=== PATIENT | male | born 1975 | race Caucasian/White ===

== ENCOUNTER 2020-06-13 02:41 | Emergency (ER) | payer OTHER ==
[~2020-06-13] VITALS: Ht 177.8 cm; Wt 173.9 kg
[2020-06-13] MEDS ORDERED: GLIM4TAB5 PO (02:56)
[2020-06-13] MEDS ORDERED: LOSA50TA5 PO (02:56)
[2020-06-13] MEDS ORDERED: KETOROLAC 30 MG/ML 1ML VIAL IV ONE (03:45)
[2020-06-13] MEDS ORDERED: NS 1,000 ML IV ONE ×2 (03:45→05:45)
[2020-06-13 04:10] LABS: BASO % 0.2 % (0.0-1.0); EOS # 0.1 10^3/uL (0.0-0.5); EOS % 1.4 % (0.0-3.0); HEMATOCRIT 43.2 % (42.0-52.0); HEMOGLOBIN 14.3 g/dl (13.5-17.5); LYMPH # 1.9 10^3/uL (1.5-5.0); LYMPH % 19.4 % (24.0-44.0); MEAN CORPUSCULAR HEMOGLOBIN 28.1 pg (27.0-33.0); MEAN CORPUSCULAR HGB CONC 33.1 g/dl (32.0-36.5); MEAN CORPUSCULAR VOLUME 84.9 fl (80.0-96.0); MONO # 0.9 10^3/uL (0.0-0.8); MONO % 9.2 % (0.0-5.0); NEUTROPHILS % 69.6 % (36.0-66.0); PLATELET COUNT, AUTOMATED 255 10^3/uL (150-450); RED BLOOD COUNT 5.09 10^6/uL (4.30-6.10)
--- NOTE | 2020-06-13 04:13 | REPVR ---
PROCEDURE INFORMATION: Exam: XR Left Shoulder Exam date and time: 06/13/2020 3:54 AM Age: 44 years old Clinical indication: Other: Pain, limited rom; Additional info: Pain, limited rom TECHNIQUE: Imaging protocol: XR Left shoulder. Views: 2 or more views. COMPARISON: No relevant prior studies available. FINDINGS: Bones/joints: Normal. Soft tissues: Normal. IMPRESSION: No acute findings. Electronically signed by: Margarito Bowling On 06/13/2020 04:13:02 AM
--- NOTE | 2020-06-13 04:14 | REPVR ---
PROCEDURE INFORMATION: Exam: XR Chest, 2 Views Exam date and time: 06/13/2020 3:54 AM Age: 44 years old Clinical indication: Other: Chest pain TECHNIQUE: Imaging protocol: XR of the chest Views: 2 views. COMPARISON: No relevant prior studies available. FINDINGS: Lungs: Mild nonspecific bilateral perihilar reticulonodular opacities. Pleural space: Unremarkable. No pleural effusion. No pneumothorax. Heart/Mediastinum: Unremarkable. No cardiomegaly. 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 IMPRESSION: Mild nonspecific bilateral perihilar reticulonodular opacities. Electronically signed by: Margarito Bowling On 06/13/2020 04:13:46 AM
--- NOTE | 2020-06-13 04:43 | REPVR ---
PROCEDURE INFORMATION: Exam: US Duplex Left Upper Extremity Veins, Limited Exam date and time: 06/13/2020 4:32 AM Age: 44 years old Clinical indication: Pain; Arm, upper; Left; Additional info: Left arm pain TECHNIQUE: Imaging protocol: Real-time Duplex ultrasound of the Left Upper Extremity with 2-D david scale, color Doppler flow and spectral waveform analysis with image documentation. Limited exam focused on the left upper extremity veins. COMPARISON: No relevant prior studies available. FINDINGS: Left deep veins: Unremarkable. Axillary and brachial veins are patent throughout without thrombus. Normal Doppler waveforms. Normal compressibility and/or augmentation response. Visualized internal jugular and subclavian veins are patent. Left superficial veins: Unremarkable. Visualized cephalic and basilic veins are patent without thrombus. Soft tissues: Unremarkable. IMPRESSION: No evidence of deep vein thrombosis. Electronically signed by: Margarito Bowling On 06/13/2020 04:43:05 AM
[2020-06-13 04:59] LABS: BLOOD UREA NITROGEN 20 MG/DL (7-18); CALCIUM LEVEL 8.6 MG/DL (8.5-10.1); CARBON DIOXIDE LEVEL 26 MEQ/L (21-32); CHLORIDE LEVEL 109 MEQ/L (98-107); CPK CREATINE PHOSPHOKINASE 2972 U/L (39-308); CREATININE FOR GFR 1.25 MG/DL (0.70-1.30); GLOMERULAR FILTRATION RATE > 60.0 (>60); GLUCOSE, FASTING 196 MG/DL (70-100); MB/CK RELATIVE INDEX 0.03 (< OR =4); POTASSIUM SERUM 3.8 MEQ/L (3.5-5.1); SODIUM LEVEL 141 MEQ/L (136-145); TROPONIN I < 0.02 NG/ML (< 0.10)
[2020-06-13 07:19] VITALS: BP 158/70
--- NOTE | 2020-06-13 13:57 | ECGEPIP ---
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
--- NOTE | 2020-06-13 15:06 | ED PDOC ---
Post-Departure Follow-Up certified letter regarding radiology report sent to patient Nicole Villareal MD Jun 13, 2020 15:06
== END 2020-06-13 07:21 | disposition home or self-care (01) ==
LOC: M ED 02:41
DX: M62.82 Rhabdomyolysis (principal); R00.0 Tachycardia, unspecified; R91.8 Other nonspecific abnormal finding of lung field; E66.9 Obesity, unspecified; E11.9 Type 2 diabetes mellitus without complications; I10 Essential (primary) hypertension; E78.5 Hyperlipidemia, unspecified
CPT/HCPCS: 71046; 73030; 80048; 82550; 82553; 84484; 85025; 93005; 93041; 93971; 94760; 96361; 96374; 99284; J1885